=== PATIENT | female | born 1975 | race Caucasian/White ===

== ENCOUNTER 2016-09-14 18:18 | Emergency (ER) | payer BC, OTHER | END 2016-09-15 01:05 | disposition home or self-care (01) | LOC: ER 18:18 | DX: K64.8 Other hemorrhoids (principal); K62.89 Other specified diseases of anus and rectum; F17.200 Nicotine dependence, unspecified, uncomplicated | CPT/HCPCS: 36415; 80053; 81003; 82274; 83690; 85025 ==